=== PATIENT | female | born 1970 | race Caucasian/White ===

== ENCOUNTER 2024-02-25 20:38 | Emergency (ER) | payer MEDICAID ==
[~2024-02-25] VITALS: Ht 162.6 cm; Wt 94.5 kg
[2024-02-25 20:51] VITALS: O2SAT 99
[2024-02-25] MEDS: IBUPROFEN 400MG TABLET PO NR (21:30)
[2024-02-25] MEDS: ACETAMINOPHEN 325MG TABLET PO NR (21:30)
[2024-02-25] MEDS: KETOROLAC 15MG/ML VIAL IM ONE (23:45)
[2024-02-25] MEDS: CYCLOBENZAPRINE 10MG TABLET PO ONE (23:45)
[2024-02-26] MEDS: ONDANSETRON 4MG ODT PO ONE (00:31)
[2024-02-26] MEDS ORDERED: CYCL10TA21 MT (02:03)
[2024-02-26] MEDS ORDERED: NAPR-681 MT (02:03)
[2024-02-26] MEDS: KETOROLAC 15MG/ML VIAL IM NR (02:19)
[2024-02-26] MEDS: CYCLOBENZAPRINE 10MG TABLET PO NR (02:19)
[2024-02-26 02:20] VITALS: BP 125/62; PULSE 55; RESP 16; TEMP 36.72516; O2SAT 98
== END 2024-02-26 02:26 | disposition home or self-care (01) ==
LOC: ER 20:38
DX: M54.2 Cervicalgia (principal); R51.9 Headache, unspecified; M54.50 Low back pain, unspecified; N63.11 Unspecified lump in the right breast, upper outer quadrant; Z79.1 Long term (current) use of non-steroidal anti-inflammatories (NSAID); Z98.890 Other specified postprocedural states; V43.52XA Car driver injured in collision with other type car in traffic accident, initial encounter; Y93.89 Activity, other specified; Y92.89 Other specified places as the place of occurrence of the external cause; Y99.8 Other external cause status
CPT/HCPCS: 99285; 81025; 70450; 72125; 71250; 74176; 96372; J1885; Q0162